=== PATIENT | male | born 1950 | race Caucasian/White ===

== ENCOUNTER → 2017-01-20 | Outpatient (CLI) | payer MEDICARE, OTHER ==
[2017-01-20 07:48] LABS: CH 29.2; CHCM 33.2; HCT 45.9 % (39.0-53.0); HDW 2.65; MCH 28.8 pg (25.0-35.0); MCHC 32.6 g/dL (31.0-37.0); MCV 88.4 fL (80.0-100.0); Mean Platelet Volume 6.6; RDW 13.2 % (11.5-15.5); WBC 5.3 k/uL (3.8-10.6)
[2017-01-20 08:14] LABS: ALT 38 U/L (21-72); AST 28 U/L (17-59); Alkaline Phosphatase 46 U/L (38-126); Anion Gap 6 mmol/L; Blood Urea Nitrogen 19 mg/dL (9-20); Calcium 9.3 mg/dL (8.4-10.2); Carbon Dioxide 31 mmol/L (22-30); Chloride 104 mmol/L (98-107); Glucose 114 mg/dL (74-99); Non-African American GFR(MDRD) >60 (>60 ml/min/1.73 sqM); Potassium 5.1 mmol/L (3.5-5.1); Sodium 141 mmol/L (137-145); Total Bilirubin 0.5 mg/dL (0.2-1.3); Total Protein 7.3 g/dL (6.3-8.2); Uric Acid 5.9 mg/dL (3.5-8.5)
[2017-01-20 08:43] LABS: Prostate Specific Antigen 0.36 ng/mL (0.00-4.00)
[2017-01-20 10:24] LABS: Hemoglobin A1C 5.8 % (4.2-6.1)
== END | disposition home or self-care (01) ==
LOC: LABWHC1 07:08
PROVIDERS: ATTEND Internal Medicine
DX: E78.2 Mixed hyperlipidemia (principal); I10 Essential (primary) hypertension; M10.9 Gout, unspecified; E03.9 Hypothyroidism, unspecified
CPT/HCPCS: 36415; 80053; 82043; 83036; 84153; 84443; 84550; 85027

== ENCOUNTER 2017-05-14 07:53 | Day surgery (SDC) | payer MEDICARE, OTHER ==
[2017-05-10 12:06] VITALS: BMI 31.7
[~2017-05-14 07:53] MED LIST: LACTATED RINGERS 1,000 ML IV SCH; LIDOCAINE 1% 20 ML VIAL (10MG/ML) FOR IV START INTRADERMA PRN
[2017-05-14 08:15] VITALS: RESP 18
[2017-05-14] MEDS ORDERED: PROPOFOL 10 MG/ML 20 ML VIAL IV ONE (09:18)
[2017-05-14] MEDS ORDERED: LIDOCAINE 1% INJ 10MG/ML (20 ML MDV) ONE (09:18)
--- NOTE | 2017-05-14 09:42 | P.PCN ---
Date of Procedure: 05/14/17 Preoperative Diagnosis: Postoperative Diagnosis: Procedure(s) Performed: Procedure: Total colonoscopy. Preoperative diagnosis: Screening for neoplasia. Postoperative diagnosis: Diverticulosis with no evidence of acute diverticulitis , strictures, polyps or cancer. Preparation: HalfLytely prep. Sedation: Was provided by anesthesia. Brief clinical history: The patient is a 67-year-old male who is referred for this evaluation for screening for neoplasia. He had a prior exam more than 11 years ago. At this time, he has no abdominal complaints, bleeding or anemia. No family history of colon cancer. Procedure: With the patient on his left lateral decubitus position and after informed consent and adequate sedation, the perianal area was inspected and it did not show any fissures or fistulas. There were no masses felt on digital rectal examination. The Olympus CFQ 160L video colonoscope was then inserted in the rectum in the usual fashion and advanced to the cecum. There were multiple diverticular orifices noted along the length of the bowel mostly on the left side with few where on the right side with no evidence of acute diverticulitis or strictures. The mucosa appeared healthy. No other abnormalities were seen in the colon including any polyps or tumors. I retroflexed the endoscope in the rectum before the endoscope was withdrawn. Low -grade internal hemorrhoids were noted with no evidence of bleeding. The patient tolerated the procedure well. Plan: The patient was reassured. Discussed dietary measures. He will follow up with you as planned and I recommended repeat exam in 10 years. Implants: Indications for Procedure: Operative Findings: Description of Procedure:
[2017-05-14 10:20] VITALS: BP 116/60; PULSE 56
== END 2017-05-14 10:37 | disposition home or self-care (01) ==
LOC: ORWHC2ENDO 07:53
DX: Z12.11 Encounter for screening for malignant neoplasm of colon (principal); K64.8 Other hemorrhoids; K57.30 Diverticulosis of large intestine without perforation or abscess without bleeding; I10 Essential (primary) hypertension; I48.91 Unspecified atrial fibrillation; E78.5 Hyperlipidemia, unspecified; M10.9 Gout, unspecified; Z79.899 Other long term (current) drug therapy
CPT/HCPCS: J2001; J2704; G0121

== ENCOUNTER → 2017-10-13 | Outpatient (CLI) | payer MEDICARE, OTHER ==
[2017-10-13 07:49] LABS: Anion Gap 10 mmol/L; Blood Urea Nitrogen 22 mg/dL (9-20); Calcium 9.3 mg/dL (8.4-10.2); Carbon Dioxide 29 mmol/L (22-30); Chloride 103 mmol/L (98-107); Cholesterol 171 mg/dL (<200); Glucose 120 mg/dL (74-99); HDL Cholesterol 60 mg/dL (40-60); LDL Cholesterol,Calculated 79 mg/dL (0-99); Potassium 4.7 mmol/L (3.5-5.1); Sodium 142 mmol/L (137-145); Triglycerides 160 mg/dL (<150)
== END | disposition home or self-care (01) ==
LOC: LABWHC1 07:02
PROVIDERS: ATTEND Internal Medicine
DX: E11.69 Type 2 diabetes mellitus with other specified complication (principal); R53.83 Other fatigue; E87.8 Other disorders of electrolyte and fluid balance, not elsewhere classified; E78.4 Other hyperlipidemia
CPT/HCPCS: 36415; 80048; 80061; 83036; 84443

== ENCOUNTER 2018-07-03 05:15 | Emergency (ER) | payer MEDICARE, OTHER ==
[2018-07-03 05:23] VITALS: TEMP 97.9
[2018-07-03] MEDS ORDERED: SODIUM CHLORIDE 0.9% 1,000 ML IV STA (05:41)
[2018-07-03] MEDS ORDERED: ASPIRIN 81 MG PO STA (05:41)
[2018-07-03 05:51] LABS: Basophils # (A) 0.1 k/uL (0-0.2); Basophils % (A) 1 %; Eosinophils # (A) 0.2 k/uL (0-0.7); Eosinophils % (A) 3 %; HCT 45.5 % (39.0-53.0); HGB 15.3 gm/dL (13.0-17.5); Lymphocytes % (A) 22 %; MCH 29.3 pg (25.0-35.0); MCHC 33.8 g/dL (31.0-37.0); MCV 86.7 fL (80.0-100.0); Mean Platelet Volume 6.5; Monocytes # (A) 0.3 k/uL (0-1.0); Monocytes % (A) 7 %; Neutrophils # (A) 3.1 k/uL (1.3-7.7); Neutrophils % (A) 64 %; Platelet Count 146 k/uL (150-450); RBC 5.25 m/uL (4.30-5.90); RDW 13.5 % (11.5-15.5); WBC 4.8 k/uL (3.8-10.6)
--- NOTE | 2018-07-03 05:52 | ED ---
Chest Pain HPI - General Chief Complaint: Chest Pain Stated Complaint: Not feeling well Time Seen by Provider: 07/03/18 05:41 Source: patient Mode of arrival: ambulatory Limitations: no limitations - History of Present Illness Initial Comments: Kaz is a 68-year-old male who presents the emergency department today via private vehicle for evaluation of feeling unwell. Patient reports that he was in his usual state of health throughout the day yesterday. He reports that he woke suddenly around 3 AM and just felt bad. He can't describe how he was feeling. He decided to go outside and go for a walk by the river to see a fresh air made her feel better. He does report that walking outside to feel somewhat better. He then went back in the home and attempted to lay back down but reported that he didn't feel well so he again decided to get up and walk around. He states that he felt lightheaded and like he might pass out. At which time his decided bring him to the ER. Patient denies any specific complaints. Patient specifically denies fevers, chills, and vision change, difficulty with speech or swallowing, headache or ringing in his ears, he denies any chest pain, palpitations, nausea, vomiting, abdominal pain, change in bowel or bladder habits. He does report that upon arrival he felt this of his having trouble catching his breath that this has resolved since arrival in triage. - Related Data Home Medications Medication Instructions Recorded Confirmed Allopurinol [Zyloprim] 300 mg PO DAILY 05/10/17 05/10/17 Multivitamins, Thera [Multivitamin 1 tab PO DAILY 05/10/17 05/10/17 (formulary)] [place]-3 Fatty Acids/Fish Oil [Fish 1 each PO DAILY 05/10/17 05/10/17 Oil 1,000 mg Softgel] Aspirin EC [Ecotrin Low Dose] 81 mg PO DAILY 07/03/18 07/03/18 Enalapril [Vasotec] 5 mg PO DAILY 07/03/18 07/03/18 Levothyroxine Sodium [Synthroid] 125 mcg PO DAILY 07/03/18 07/03/18 Rosuvastatin [Crestor] 20 mg PO DAILY 07/03/18 07/03/18 Allergies Allergy/AdvReac Type Severity Reaction Status Date / Time No Known Allergies Allergy Verified 07/03/18 07:02 Review of Systems ROS Statement: Those systems with pertinent positive or pertinent negative responses have been documented in the HPI. ROS Other: All systems not noted in ROS Statement are negative. EKG Findings - EKG Comments: EKG Findings:: EKG obtained at 5:26 AM, rate 73 rhythm is sinus with a first- degree AV block and a left axis deviation. WI is 218, QRS is 92, QTc is 425. There is no acute ST elevations or depressions is no evidence of acute ischemia or infarction. Past Medical History Past Medical History: Atrial Fibrillation, Hypertension, Thyroid Disorder Additional Past Medical History / Comment(s): GOUT, PARTIALLY DEAF RIGHT EAR., History of Any Multi-Drug Resistant Organisms: None Reported Past Surgical History: Heart Catheterization Additional Past Surgical History / Comment(s): COLONOSCOPY Past Anesthesia/Blood Transfusion Reactions: No Reported Reaction Past Psychological History: No Psychological Hx Reported Smoking Status: Former smoker Past Alcohol Use History: Occasional Past Drug Use History: None Reported - Past Family History Mother Family Medical History: Cancer Additional Family Medical History / Comment(s): LYMPH NODE CANCER General Exam - General Exam Comments Initial Comments: GENERAL: Patient is well-developed and well-nourished. Patient's skin has a rosas discoloration and he appears unwell HENT: Normocephalic, Atraumatic. Neck is soft and supple. No significant lymphadenopathy is noted. Oropharynx is clear. Moist mucous membranes. Neck has full range of motion without eliciting any pain. EYES: Bilateral conjunctival injection Pupils equal round reactive to light, extraocular movements intact PULMONARY: Unlabored respirations. Good breath sounds bilaterally. No audible rales rhonchi or wheezing was noted. CARDIOVASCULAR: There is a regular rate and rhythm without any murmurs gallops or rubs. ABDOMEN: Soft and nontender with normal bowel sounds. SKIN: Skin is clear with no lesions or rashes and otherwise unremarkable. NEUROLOGIC: Patient is alert and oriented x3. Cranial nerves II through XII are grossly intact. Motor and sensory are also intact. Normal speech, volume and content. Symmetrical smile. MUSCULOSKELETAL: Normal extremities with adequate strength and full range of motion. No lower extremity swelling or edema. No calf tenderness. LYMPHATICS: No significant lymphadenopathy is noted PSYCHIATRIC: Normal psychiatric evaluation. Patient seems somewhat anxious but this is appropriate considering he's feeling unwell. Limitations: no limitations Limitations: no limitations Course Vital Signs 07/03/18 07/03/18 05:19 06:44 Temperature 97.9 F Pulse Rate 79 65 Respiratory 26 H 16 Rate Blood Pressure 187/84 167/83 O2 Sat by Pulse 100 95 Oximetry Chest Pain MDM - MDM Patient was seen and evaluated immediately upon arrival to the emergency department. Patient reports feeling unwell, was noted to appear somewhat rosas and unwell while in triage and was immediately brought back to the emergency department. EKG was obtained upon arrival with no evidence of acute ischemia or infarction. Patient does have a history of atrial fibrillation but at this point is in sinus rhythm. Cardiac workup was ordered Initial EKG was unremarkable no evidence of acute ischemia or infarction Labs with no significant abnormalities, troponin negative Patient stating that he felt unwell and like it pass out a head CT was ordered Considering the patient's age and initial appearance and a high suspicion for cardiac etiology of his symptoms. Plan to admit him to the observation unit for continuous cardiac monitoring, serial troponins and evaluation by cardiology for anginal equivalent. This plan was discussed with the patient and his . Patient was reevaluated, patient is sitting up comfortably in bed, has good pink coloration to his cheeks, is not diaphoretic does not appear unwell. This completely resolved. Labs and imaging results were discussed with the patient and his . Patient is eager to be discharged home with his states she will encourage him to stay. Patient care was discussed with his primary care physician who is agreeable with the plan for either placing the patient observation for evaluation or he can see the patient in office later today or tomorrow. Options were discussed with the patient patient would like to be discharged home at this time. Disposition Clinical Impression: Feeling unwell Disposition: HOME SELF-CARE Instructions: Chest Pain (ED) Additional Instructions: To follow-up with her primary care physician today, he need to follow up with cardiology for reevaluation before the end of the week. The need to return to the emergency department or call 911 if he began feeling unwell, have any chest pain or palpitations. Is patient prescribed a controlled substance at d/c from ED?: No Referrals: Samuel Matute MD [Primary Care Provider] - 1-2 days
[2018-07-03 06:03] LABS: Albumin 4.4 g/dL (3.5-5.0); Anion Gap 11 mmol/L; Blood Urea Nitrogen 20 mg/dL (9-20); Calcium 9.1 mg/dL (8.4-10.2); Carbon Dioxide 24 mmol/L (22-30); Chloride 107 mmol/L (98-107); Glucose 123 mg/dL (74-99); Sodium 142 mmol/L (137-145); Total Bilirubin 0.7 mg/dL (0.2-1.3); Total Protein 7.6 g/dL (6.3-8.2)
[2018-07-03 06:04] LABS: AST 38 U/L (17-59)
[2018-07-03 06:05] LABS: ALT 26 U/L (21-72); Alkaline Phosphatase 34 U/L (38-126)
[2018-07-03 06:13] LABS: Creatine Kinase 210 U/L (55-170)
--- NOTE | 2018-07-03 06:17 | XR ---
EXAMINATION TYPE: XR chest 2V DATE OF EXAM: 07/03/2018 COMPARISON: NONE HISTORY: Short of breath TECHNIQUE: Frontal and lateral views of the chest are obtained. FINDINGS: There is elevated left diaphragm. Lungs are clear of infiltrate. There is no heart failure . There are chest leads. Bony thorax is intact. Heart size is normal. IMPRESSION: Elevated left diaphragm could relate to some paralysis. Normal heart and lungs.
[2018-07-03 06:26] LABS: Creatine Kinase MB 1.7 ng/mL (0.0-2.4); Troponin I <0.012 ng/mL (0.000-0.034)
[2018-07-03 06:27] LABS: D-Dimer 0.42 mg/L FEU (<0.60); Prothrombin Time 9.9 sec (9.0-12.0)
[2018-07-03 06:44] VITALS: BP 167/83; PULSE 65; RESP 16
[2018-07-03] MEDS ORDERED: NITROGLYCERIN SL TABS 0.4 MG TAB SUBLINGUAL PRN (06:47)
--- NOTE | 2018-07-03 06:53 | CT ---
EXAMINATION TYPE: CT brain wo con DATE OF EXAM: 07/03/2018 COMPARISON: None HISTORY: Not feeling well, confusion CT DLP: 1150 mGycm Automated exposure control for dose reduction was used. FINDINGS: Ventricles and sulci appear normal. There is no mass effect nor midline shift. There is no sign of in tracranial hemorrhage. Calvarium is intact. IMPRESSION: NEGATIVE CT SCAN OF THE BRAIN.
[2018-07-04] MEDS ORDERED: ASPIRIN 325 MG TAB PO SCH (09:00)
== END 2018-07-03 07:22 | disposition home or self-care (01) ==
LOC: EC 05:15 → UNDOADMOB 06:47 → 3OBS 06:47
DX: R07.9 Chest pain, unspecified (principal); I48.91 Unspecified atrial fibrillation; I10 Essential (primary) hypertension; E07.9 Disorder of thyroid, unspecified; M10.9 Gout, unspecified; H91.91 Unspecified hearing loss, right ear; Z87.891 Personal history of nicotine dependence; Z98.890 Other specified postprocedural states; Z79.82 Long term (current) use of aspirin; Z79.899 Other long term (current) drug therapy
CPT/HCPCS: 36415; 70450; 71046; 80053; 82550; 82553; 83735; 84443; 84484; 85025; 85379; 85610; 85730; 93005; 96360; 99285

== ENCOUNTER → 2020-05-19 | Outpatient (CLI) | payer MEDICARE ==
--- NOTE | 2020-05-19 23:24 | CT ---
EXAMINATION TYPE: CT lumbar spine wo con DATE OF EXAM: 05/19/2020 COMPARISON: None HISTORY: Low back pain radiating down left leg x9 months. CT DLP: 946.6 mGycm CONTRAST: None TECHNIQUE: CT of the lumbar spine is performed on a spiral scan at 3 mm thick sections. Reconstructed images are performed in the coronal and sagittal planes. FINDINGS: Some distal aorta fusiform prominence may be present with an AP diameter of 2.2 cm. There i s straightening of the thoracic or lumbar spine within the [id number]. T10-T11:No focal disc herniation or significant disc bulge is evident. No spinal canal stenosis or neural foraminal stenosis is present. T11-T12: Disc space narrowing is present. Some very minimal disc bulge of the residual disc may be pr esent with anterior thecal sac contact. No AP spinal canal stenosis is present. Facet degenerative ch anges are present. T12-L1: No focal disc herniation or significant disc bulge is evident. No spinal canal stenosis or neural foraminal stenosis is present. Facet hypertrophy is present. L1-L2: Broad-based disc bulge is present with anterior thecal sac flattening. No AP spinal canal sten osis is present. Mild facet hypertrophy is present. L2-L3: Broad-based disc bulge is present with moderate anterior thecal sac compression. Facet hypertr ophy and ligamentum flavum laxity has posterior lateral thecal sac compression. These are contributin g to spinal canal stenosis through this level. AP spinal canal measures 0.9 cm. Disc space narrowing is present L3-L4: Broad-based disc bulge is present with anterior thecal sac compression. Facet hypertrophy and ligamentum flavum laxity is present. Spinal canal stenosis is present. This appears slightly greater than the L2-3 level. L4-L5: Sclerosis along the endplates of L4-5. There is loss of disc height is level. Some endplate sp urring is present. There is a large central disc herniation present. This extends into the right para central region posterior to the L5 level. Facet hypertrophy and ligamentum flavum laxity is present w ith severe spinal canal stenosis. Bilateral foraminal stenosis is present L5-S1: L5 spondylolysis is present. There is a grade 1 spondylolisthesis of L5 anterior on S1. Some d isc uncovering is present. No spinal canal stenosis is present. Severe left and right foraminal steno sis is present. IMPRESSION: 1. Spinal canal stenosis most severe at L4-5 with spinal canal stenosis also present L3-4 L2-3. 2. Severe bilateral foraminal stenosis L4-5 L5-S1. 3. Large central extending to the right paracentral canal disc herniation L4-5 contributing to the sp inal canal stenosis. 4. Diffuse degenerative disc changes throughout the lower thoracic and lumbar spine greatest at L4-5 and L5-S1.
== END | disposition home or self-care (01) ==
LOC: RADCTMAIN 18:12
PROVIDERS: ATTEND Physical Medicine & Rehabilitation
DX: M48.061 Spinal stenosis, lumbar region without neurogenic claudication (principal); M48.07 Spinal stenosis, lumbosacral region; M51.16 Intervertebral disc disorders with radiculopathy, lumbar region; M51.17 Intervertebral disc disorders with radiculopathy, lumbosacral region
CPT/HCPCS: 72131

== ENCOUNTER 2020-08-05 14:37 | Emergency (ER) | payer MEDICARE ==
[2020-08-05 14:42] VITALS: RESP 18
--- NOTE | 2020-08-05 15:23 | ED ---
General Adult HPI - General Chief complaint: Neuro Symptoms/Deficit Stated complaint: memory problem Time Seen by Provider: 08/05/20 15:09 Source: patient, RN notes reviewed, old records reviewed Mode of arrival: ambulatory Limitations: no limitations - History of Present Illness Initial comments: 70-year-old male presents for an episode of confusion, memory loss. Patient had had a normal morning, around 1 PM he had began watching some television and had taken a short nap. He woke from his nap and he was uncertain where he was. He got out of the kitchen he was acutely confused. He did not know that he had retired which occurred 6 months prior. He was unaware of his surroundings or where he was. This episode lasted about 30 minutes. Has completely resolved. Patient is alert and oriented to time my evaluation. He has no complaints. No fever. No cough. No headache. Denies focal numbness or weakness. No gait instability. - Related Data Home Medications Medication Instructions Recorded Confirmed Multivitamins, Thera [Multivitamin 1 tab PO DAILY 05/10/17 07/03/18 (formulary)] [place]-3 Fatty Acids/Fish Oil [Fish 1 cap PO DAILY 05/10/17 07/03/18 Oil 1,000 mg Softgel] allopurinoL [Zyloprim] 300 mg PO DAILY 05/10/17 07/03/18 Aspirin EC [Ecotrin Low Dose] 81 mg PO DAILY 07/03/18 07/03/18 Enalapril [Vasotec] 5 mg PO DAILY 07/03/18 07/03/18 Levothyroxine Sodium [Synthroid] 125 mcg PO DAILY 07/03/18 07/03/18 Rosuvastatin [Crestor] 20 mg PO DAILY 07/03/18 07/03/18 Allergies Allergy/AdvReac Type Severity Reaction Status Date / Time No Known Allergies Allergy Verified 08/05/20 14:42 Review of Systems ROS Statement: Those systems with pertinent positive or pertinent negative responses have been documented in the HPI. ROS Other: All systems not noted in ROS Statement are negative. Past Medical History Past Medical History: Atrial Fibrillation, Hypertension, Thyroid Disorder Additional Past Medical History / Comment(s): GOUT, PARTIALLY DEAF RIGHT EAR., History of Any Multi-Drug Resistant Organisms: None Reported Past Surgical History: Heart Catheterization Additional Past Surgical History / Comment(s): COLONOSCOPY Past Anesthesia/Blood Transfusion Reactions: No Reported Reaction Past Psychological History: No Psychological Hx Reported Smoking Status: Never smoker Past Alcohol Use History: Daily Past Drug Use History: None Reported - Past Family History Mother Family Medical History: Cancer Additional Family Medical History / Comment(s): LYMPH NODE CANCER General Exam Limitations: no limitations General appearance: alert, in no apparent distress Head exam: Present: atraumatic, normocephalic Eye exam: Present: normal appearance, PERRL, EOMI ENT exam: Present: mucous membranes dry Neck exam: Present: normal inspection. Absent: tenderness, meningismus Respiratory exam: Present: normal lung sounds bilaterally. Absent: respiratory distress, wheezes Cardiovascular Exam: Present: regular rate, normal rhythm GI/Abdominal exam: Present: soft. Absent: distended, tenderness Extremities exam: Present: normal inspection, normal capillary refill. Absent: pedal edema Neurological exam: Present: alert, altered, CN II-XII intact, normal gait. Absent: motor sensory deficit Psychiatric exam: Present: normal affect, normal mood Skin exam: Present: warm, dry, intact. Absent: cyanosis, diaphoretic Course Vital Signs 08/05/20 14:39 Temperature 98.1 F Pulse Rate 90 Respiratory 18 Rate Blood Pressure 139/78 O2 Sat by Pulse 99 Oximetry EKG Findings - EKG Comments: EKG Findings:: EKG: Normal sinus rhythm, age undetermined inferior infarct, Q waves in the inferior leads, no ST segment elevation, rate of 76, HI interval 208, QRS duration 96, QTC 434 Medical Decision Making - Medical Decision Making 70-year-old male with episode of confusion which is completely resolved. He is stable vitals and a nonfocal neurologic exam. Patient is here at the request of his for evaluation he himself feels perfectly normal and really does not want any significant testing performed. I did convince the patient to receive head CT which is negative for intracranial hemorrhage or mass effect, shows chronic small vessel ischemic changes which is unchanged compared to prior 2 years ago. His CBC is normal, he has normal white lites, normal kidney function. He is very eager for discharge. He will follow with his primary care physician regarding these symptoms he will return with any worsening or changing symptoms. Additionally is given neurology follow-up as needed. - Lab Data Result diagrams: 08/05/20 15:52 Lab Results 08/05/20 Range/Units 15:52 WBC 9.4 (3.8-10.6) k/uL RBC 5.35 (4.30-5.90) m/uL Hgb 15.5 (13.0-17.5) gm/dL Hct 48.0 (39.0-53.0) % MCV 89.7 (80.0-100.0) fL MCH 29.0 (25.0-35.0) pg MCHC 32.4 (31.0-37.0) g/dL RDW 13.1 (11.5-15.5) % Plt Count 195 (150-450) k/uL MPV 6.5 Neutrophils % 76 % Lymphocytes % 15 % Monocytes % 5 % Eosinophils % 3 % Basophils % 1 % Neutrophils # 7.1 (1.3-7.7) k/uL Lymphocytes # 1.4 (1.0-4.8) k/uL Monocytes # 0.5 (0-1.0) k/uL Eosinophils # 0.3 (0-0.7) k/uL Basophils # 0.1 (0-0.2) k/uL Disposition Clinical Impression: Acute confusion Disposition: HOME SELF-CARE Condition: Good Instructions (If sedation given, give patient instructions): Altered Mental Status (ED) Is patient prescribed a controlled substance at d/c from ED?: No Referrals: Nga Shay MD [Primary Care Provider] - 1-2 days Jeff Velasquez DO [STAFF PHYSICIAN] - 1-2 days Time of Disposition: 16:06
--- NOTE | 2020-08-05 15:41 | CT ---
EXAMINATION TYPE: CT brain wo con DATE OF EXAM: 08/05/2020 HISTORY: Episode of confusion CT DLP: 1172.4 mGycm. Automated Exposure Control for Dose Reduction was Utilized. TECHNIQUE: CT scan of the head is performed without contrast. COMPARISON: CT brain July 03, 2018. FINDINGS: There is no acute intracranial hemorrhage or midline shift identified. There is diffuse v entricular and sulcal prominence consistent with diffuse age-related cerebral atrophy. There is low- attenuation in the periventricular white matter consistent with chronic small vessel ischemic change. Small superficial round foreign body right supraorbital region laterally axial image 17 redemonstrat ed. The sinuses remain clear. The globes are intact bilaterally. IMPRESSION: No acute intracranial hemorrhage or midline shift. There is mild to moderate diffuse ce rebral atrophy and chronic small vessel ischemic change redemonstrated. No significant change from p rior.
[2020-08-05 16:00] LABS: Basophils # (A) 0.1 k/uL (0-0.2); Basophils % (A) 1 %; Eosinophils # (A) 0.3 k/uL (0-0.7); Eosinophils % (A) 3 %; HGB 15.5 gm/dL (13.0-17.5); Lymphocytes # (A) 1.4 k/uL (1.0-4.8); Lymphocytes % (A) 15 %; MCHC 32.4 g/dL (31.0-37.0); MCV 89.7 fL (80.0-100.0); Mean Platelet Volume 6.5; Monocytes # (A) 0.5 k/uL (0-1.0); Monocytes % (A) 5 %; Neutrophils # (A) 7.1 k/uL (1.3-7.7); Neutrophils % (A) 76 %; Platelet Count 195 k/uL (150-450); RBC 5.35 m/uL (4.30-5.90); RDW 13.1 % (11.5-15.5); WBC 9.4 k/uL (3.8-10.6)
[2020-08-05 16:09] LABS: ALT 19 U/L (4-49); AST 35 U/L (17-59); African American GFR (CKD) >90 (>60 ml/min/1.73 sqM); Albumin 4.6 g/dL (3.5-5.0); Alkaline Phosphatase 45 U/L (38-126); Anion Gap 8 mmol/L; Blood Urea Nitrogen 17 mg/dL (9-20); Calcium 9.2 mg/dL (8.4-10.2); Carbon Dioxide 24 mmol/L (22-30); Chloride 105 mmol/L (98-107); Glucose 103 mg/dL (74-99); Non-African American GFR(CKD) 88 (>60 ml/min/1.73 sqM); Sodium 137 mmol/L (137-145); Total Bilirubin 0.8 mg/dL (0.2-1.3); Total Protein 7.9 g/dL (6.3-8.2)
[2020-08-05 16:13] LABS: Potassium 4.7 mmol/L (3.5-5.1)
[2020-08-05 16:29] LABS: INR 0.9 (<1.2); Partial Thromboplastin Time 22.1 sec (22.0-30.0); Prothrombin Time 9.7 sec (9.0-12.0)
[2020-08-05 16:59] VITALS: BP 116/70; PULSE 72; TEMP 98
== END 2020-08-05 17:00 | disposition home or self-care (01) ==
LOC: EC 14:37
DX: R41.0 Disorientation, unspecified (principal); R41.3 Other amnesia; I10 Essential (primary) hypertension; E07.9 Disorder of thyroid, unspecified; I48.91 Unspecified atrial fibrillation; M10.9 Gout, unspecified; Z79.890 Hormone replacement therapy; Z79.82 Long term (current) use of aspirin; Z79.899 Other long term (current) drug therapy; Z95.5 Presence of coronary angioplasty implant and graft
CPT/HCPCS: 36415; 70450; 80053; 84484; 85025; 85610; 85730; 93005; 99285

== ENCOUNTER → 2022-02-10 | Outpatient (CLI) | payer MEDICARE ==
[2022-02-10 15:20] LABS: Basophils # (A) 0.06 X 10*3/uL (0.00-0.10); Eosinophils # (A) 0.18 X 10*3/uL (0.04-0.35); HCT 47.1 % (39.6-50.0); Immature Grans, Automated 0.3 %; Lymphocytes # (A) 1.09 X 10*3/uL (0.90-5.00); Lymphocytes % (A) 18.3 %; MCH 28.5 pg (27.0-32.0); MCHC 31.8 g/dL (32.0-37.0); MCV 89.5 fL (80.0-97.0); Mean Platelet Volume 9.3 fL (9.5-12.2); Monocytes # (A) 0.58 X 10*3/uL (0.20-1.00); Monocytes % (A) 9.7 %; NRBC Per 100 WBC 0 /100 WBCS (0.0-0.0); Neutrophils # (A) 4.04 X 10*3/uL (1.80-7.70); Neutrophils % (A) 67.7 %; Platelet Count 170 X 10*3/uL (140-440); RBC 5.26 X 10*6/uL (4.40-5.60); WBC 5.97 X 10*3/uL (4.50-10.00)
[2022-02-10 15:25] LABS: ALT 24 U/L (10-49); AST 26 U/L (14-35); African American GFR (CKD) 87.4 (60.0-200.0); Albumin 4.7 g/dL (3.8-4.9); Albumin/Globulin Ratio 1.81 (1.60-3.17); Alkaline Phosphatase 58 U/L (41-126); Blood Urea Nitrogen 18.2 mg/dL (9.0-27.0); Calcium 9.6 mg/dL (8.7-10.3); Carbon Dioxide 27.1 mmol/L (20.0-27.5); Chloride 102 mmol/L (96-109); Chol/HDL Ratio 2.96 Ratio; Globulin 2.6 g/dL (1.6-3.3); Glucose 110 mg/dL (70-110); Non-African American GFR(CKD) 75.4 (60.0-200.0); Potassium 5.2 mmol/L (3.5-5.5); Sodium 140 mmol/L (135-145); Total Protein 7.3 g/dL (6.2-8.2); Uric Acid 5.7 mg/dL (3.7-8.7)
== END | disposition home or self-care (01) ==
LOC: LABWHC1 07:25
PROVIDERS: ATTEND Family Medicine
DX: Z11.59 Encounter for screening for other viral diseases (principal); Z12.5 Encounter for screening for malignant neoplasm of prostate; E78.5 Hyperlipidemia, unspecified; M10.9 Gout, unspecified; E03.9 Hypothyroidism, unspecified
CPT/HCPCS: 36415; 80053; 80061; 83036; 84153; 84439; 84443; 84550; 85025; 86803

== ENCOUNTER → 2022-03-07 | Outpatient (CLI) | payer MEDICARE ==
--- NOTE | 2022-03-07 12:16 | US ---
EXAMINATION TYPE: US duplex aorta DATE OF EXAM: 03/07/2022 COMPARISON: NONE CLINICAL HISTORY: 71-year-old male Z13.6 Encounter for screening for cardiovascular. Previous smoker. On meds for HTN and high cholesterol. TECHNIQUE: Multiple sonographic images of the abdominal aorta are obtained. FINDINGS: EXAM MEASUREMENTS: Abdominal Aorta: Proximal: 2.4 x 2.2 cm Mid: 1.9 x 1.8 cm Distal: 1.5 x 1.5 cm. There is mild fusiform dilatation of the 2.1 cm. Bifurcation: Right- 1.1 x 1.1 cm Left- 1.2 x 1.2 cm No AAA visualized at time of scan IMPRESSION: While there is mild fusiform dilatation of the distal abdominal aorta up to 2.1 cm, there is no evide nce for any significant ectasia or AAA.
== END | disposition home or self-care (01) ==
LOC: RADUSWWP 07:27
PROVIDERS: ATTEND Family Medicine
DX: Z13.6 Encounter for screening for cardiovascular disorders (principal); I77.811 Abdominal aortic ectasia; I10 Essential (primary) hypertension; E78.00 Pure hypercholesterolemia, unspecified; Z87.891 Personal history of nicotine dependence
CPT/HCPCS: 93979